=== PATIENT | female | born 1965 | race Two or more races ===

== ENCOUNTER 2020-11-28 13:11 | Emergency (ER) | payer OTHER ==
[~2020-11-28] VITALS: Ht 154.9 cm; Wt 72.6 kg
[2020-11-28] MEDS ORDERED: TOPROL XL25 M1 PO (13:32)
[2020-11-28] MEDS ORDERED: FORTAMET500 MG PO (13:32)
[2020-11-28] MEDS ORDERED: KETO10TA2 PO (19:48)
[2020-11-28] MEDS ORDERED: ANALPRAM HC RECTAL (19:48)
== END 2020-11-28 19:57 | disposition home or self-care (01) ==
LOC: ER 13:11
DX: K57.30 Diverticulosis of large intestine without perforation or abscess without bleeding (principal); R10.32 Left lower quadrant pain

== ENCOUNTER 2021-01-26 10:07 | Day surgery (SDC) | payer OTHER ==
[~2021-01-26 10:07] MED LIST: ANALPRAM HC RECTAL; FORTAMET500 MG PO; KETO10TA2 PO; TOPROL XL25 M1 PO
== END 2021-01-26 14:30 | disposition home or self-care (01) ==
LOC: AMB-ENDOS 10:07
PROVIDERS: ATTEND Surgery
DX: K63.5 Polyp of colon (principal); K64.8 Other hemorrhoids

== ENCOUNTER 2022-01-18 05:24 | Emergency (ER) | payer OTHER ==
[~2022-01-18] VITALS: Ht 154.9 cm; Wt 75.3 kg
[2022-01-18] MEDS ORDERED: INDERAL LA80 MG (05:39)
[2022-01-18] MEDS ORDERED: INDERAL LA80 MG PO (05:39)
[2022-01-18] MEDS ORDERED: JANUMET 50-1,01 EACH PO (05:39)
[2022-01-18] MEDS ORDERED: DEXILANT60 MG (05:40)
[2022-01-18] MEDS ORDERED: CRESTOR5 MG PO (05:40)
== END 2022-01-18 09:05 | disposition home or self-care (01) ==
LOC: ER 05:24
DX: M54.2 Cervicalgia (principal); Z88.0 Allergy status to penicillin; Z88.6 Allergy status to analgesic agent; I10 Essential (primary) hypertension

== ENCOUNTER 2022-07-15 05:21 | Emergency (ER) | payer OTHER ==
[~2022-07-15] VITALS: Ht 152.4 cm; Wt 74.8 kg
[~2022-07-15 05:21] MED LIST changes: +CRESTOR5 MG PO; +DEXILANT60 MG; +INDERAL LA80 MG; +INDERAL LA80 MG PO; +JANUMET 50-1,01 EACH PO
== END 2022-07-15 14:16 | disposition home or self-care (01) ==
LOC: ER 05:21
DX: R10.32 Left lower quadrant pain (principal); K44.9 Diaphragmatic hernia without obstruction or gangrene; K21.9 Gastro-esophageal reflux disease without esophagitis; N20.0 Calculus of kidney; K57.30 Diverticulosis of large intestine without perforation or abscess without bleeding; K59.00 Constipation, unspecified; I10 Essential (primary) hypertension; E11.9 Type 2 diabetes mellitus without complications; Z79.84 Long term (current) use of oral hypoglycemic drugs; Z88.0 Allergy status to penicillin; Z88.8 Allergy status to other drugs, medicaments and biological substances

== ENCOUNTER 2024-05-14 05:17 | Emergency (ER) | payer OTHER ==
[~2024-05-14] VITALS: Ht 154.9 cm; Wt 74.8 kg
[2024-05-14] MEDS ORDERED: 0.9 % SODIUM CHLORIDE 1,000 ML IV STA (06:21)
[2024-05-14] MEDS ORDERED: MEPERIDINE HCL/PF 25 MG/ML VIAL IM STA (06:22)
[2024-05-14] MEDS ORDERED: PROMETHAZINE HCL 25 MG/ML AMPUL IM STA (06:22)
[2024-05-14] MEDS ORDERED: HYOSCYAMINE SULFATE 0.125 MG TAB.SUBL ONE (06:28)
[2024-05-14] MEDS ORDERED: PROMETHAZINE HCL 25 MG/ML AMPUL ONE (06:28)
[2024-05-14] MEDS ORDERED: HYOSCYAMINE SULFATE 0.125 MG TAB.SUBL SL ONE (06:30)
[2024-05-14] MEDS ORDERED: BARIUM SULFATE 450 ML ORAL.SUSP PO ONE (06:39)
[2024-05-14 07:37] LABS: HEMATOCRIT 42.1 % (36.0-45.00); HEMOGLOBIN 14.3 g/dL (12.0-15.00); MEAN CELL VOLUME 90.7 fL (80.00-100.00); MEAN CORPUSCULAR HEMOGLOBIN 30.9 pg (27.00-32.0); MEAN CORPUSCULAR HGB CONC 34.1 g/dl (32.0-36.0); PLATELET COUNT 229 K/uL (150-450); RED BLOOD COUNT 4.64 M/uL (4.00-6.00); RED CELL DISTRIBUTION WIDTH 13.5 % (11.5-14.5)
[2024-05-14 09:37] LABS: INR 1.01; PARTIAL THROMBOPLASTIN TIME 28.8 SECONDS (22.0-34.0)
[2024-05-14 09:51] LABS: URINE APPEARANCE Clear; URINE BILIRRUBIN Negative (NEGATIVE); URINE BLOOD Negative; URINE COLOR Yellow; URINE GLUCOSE Negative (NEGATIVE); URINE KETONE Negative (NEGATIVE); URINE LEUKOCYTE Moderate; URINE NITRATE Negative; URINE PROTEIN Negative (NEGATIVE); URINE UROBILINOGEN 0.2 E.U./dl
[2024-05-14 09:55] LABS: URINE BACTERIA 67.3 uL (0.0-1933); URINE EPITHELIAL CELLS 30.3 uL (0.0-38.8); URINE RBC 8.2 uL (0.0-20.8); URINE WBC 133.7 uL (0.0-23.2)
[2024-05-14 10:53] LABS: URINE CAST 0.14 uL (0.0-1.40)
[2024-05-14 10:57] LABS: ALBUMIN 3.6 gm/dL (3.4-5.0); BILIRUBIN TOTAL 0.42 mg/dL (0.3-1.2); CALCIUM 9.5 mg/dL (8.5-10.1); CREATININE SERUM 0.79 mg/dL (0.55-1.02); GFR 74.49; GLOBULINA 3.9 G/DL (2.4-3.5); POTASSIUM 4.5 mEq/L (3.5-5.1); TOTAL PROTEIN 7.5 gm/dL (6.4-8.2)
== END 2024-05-14 13:15 | disposition home or self-care (01) ==
LOC: ER 05:20
DX: K59.00 Constipation, unspecified (principal); N39.0 Urinary tract infection, site not specified; R10.32 Left lower quadrant pain; R10.9 Unspecified abdominal pain; Z88.0 Allergy status to penicillin; Z88.1 Allergy status to other antibiotic agents
CPT/HCPCS: 36415; 74177; Q9965

== ENCOUNTER 2024-07-08 05:50 | Day surgery (SDC) | payer OTHER ==
[~2024-07-08 05:50] MED LIST changes: +HORIZANT300 MG PO; +LIPITOR20 MG PO; +LIPOFEN50 MG PO; +MELOXICAM15 MG PO; +MULTIPLE VITAM1 EAC2 PO; +PEPCID AC20 MG PO
[2024-07-08] MEDS ORDERED: BUPIVACAINE HCL/MPF 0.5% 30ML VIAL ONE (08:25)
[2024-07-08] MEDS ORDERED: POVIDONE-IODINE 118 ML BOTT TOP ONE (08:25)
[2024-07-08] MEDS ORDERED: DIBUCAINE 30 GM TUBE ONE (08:25)
[2024-07-08] MEDS ORDERED: LIDOCAINE HCL 1%/EPINEPHRINE 20ML VIAL IJ ONE (08:26)
[2024-07-08] MEDS ORDERED: HEMOSTATIC MATRIX 1 KIT KIT TOP ONE (08:26)
[2024-07-08] MEDS ORDERED: METRONIDAZOLE/SODIUM CHLORIDE 500 MG/100 ML PIGGYBACK IV ONE ×2 (08:40→08:56)
[2024-07-08] MEDS ORDERED: levoFLOXacin IN DEXTROSE 5 % 5 MG/ML PIGGYBAG IV ONE (10:15)
[2024-07-08] MEDS ORDERED: PERCOCET 5-3251 EACH PO (10:37)
[2024-07-08] MEDS ORDERED: RECTICARE30 GM TOP (10:37)
[2024-07-08] MEDS ORDERED: TRAM1TAB98 PO (13:49)
== END 2024-07-08 15:40 | disposition home or self-care (01) ==
LOC: CIR.AMB 05:50
PROVIDERS: ATTEND Surgery
DX: K64.2 Third degree hemorrhoids (principal); K64.4 Residual hemorrhoidal skin tags; E11.9 Type 2 diabetes mellitus without complications; I10 Essential (primary) hypertension; F41.9 Anxiety disorder, unspecified; M19.90 Unspecified osteoarthritis, unspecified site; Z88.6 Allergy status to analgesic agent; Z88.5 Allergy status to narcotic agent

== ENCOUNTER 2024-07-08 18:44 | Emergency (ER) | payer OTHER ==
[~2024-07-08] VITALS: Ht 167.6 cm; Wt 81.6 kg
[~2024-07-08 18:44] MED LIST changes: +PERCOCET 5-3251 EACH PO; +RECTICARE30 GM TOP; +TRAM1TAB98 PO
[2024-07-08] MEDS ORDERED: TRAMADOL HCL 50 MG TABLET PO ONE (19:15)
[2024-07-08] MEDS ORDERED: FAMOTIDINE/PF 20 MG in 0.9 % SODIUM CHLORIDE 8 ML IV PUSH STA (19:39)
[2024-07-08] MEDS ORDERED: KETOROLAC TROMETHAMINE 30 MG VIAL IV ONE (19:45)
[2024-07-08] MEDS ORDERED: ONDANSETRON HCL 2 MG/ML VIAL IV ONE (19:45)
[2024-07-08] MEDS ORDERED: FAMOTIDINE/PF 20 MG/2 ML VIAL ONE (20:02)
[2024-07-08] MEDS ORDERED: KETOROLAC TROMETHAMINE 30 MG VIAL ONE (20:02)
[2024-07-08] MEDS ORDERED: ONDANSETRON HCL 2 MG/ML VIAL ONE (20:02)
== END 2024-07-08 22:32 | disposition home or self-care (01) ==
LOC: ER 18:44
DX: R33.9 Retention of urine, unspecified (principal); Z88.0 Allergy status to penicillin; Z88.5 Allergy status to narcotic agent; Z88.6 Allergy status to analgesic agent
CPT/HCPCS: 51702; 96365; 99282; J1885; J2405; J3490

== ENCOUNTER 2024-07-17 10:14 | Emergency (ER) | payer OTHER ==
[~2024-07-17] VITALS: Ht 154.9 cm; Wt 75.3 kg
[2024-07-17] MEDS ORDERED: INDERAL LA80 MG PO (10:30)
[2024-07-17] MEDS ORDERED: KETOROLAC TROMETHAMINE 30 MG VIAL ONE (10:56)
[2024-07-17] MEDS ORDERED: 0.9 % SODIUM CHLORIDE 1,000 ML IV SCH (11:00)
[2024-07-17] MEDS ORDERED: KETOROLAC TROMETHAMINE 30 MG VIAL IV ONE (11:00)
[2024-07-17 11:48] LABS: ALBUMIN 3.5 gm/dL (3.4-5.0); BILIRUBIN TOTAL 0.5 mg/dL (0.3-1.2); CALCIUM 9.7 mg/dL (8.5-10.1); CREATININE SERUM 0.92 mg/dL (0.55-1.02); GFR 62.48; GLOBULINA 4.5 G/DL (2.4-3.5); HEMATOCRIT 39.4 % (36.0-45.00); HEMOGLOBIN 13.6 g/dL (12.0-15.00); MEAN CORPUSCULAR HEMOGLOBIN 30.7 pg (27.00-32.0); MEAN CORPUSCULAR HGB CONC 34.4 g/dl (32.0-36.0); PLATELET COUNT 276 K/uL (150-450); POTASSIUM 4.74 mEq/L (3.5-5.1); RED BLOOD COUNT 4.42 M/uL (4.00-6.00); RED CELL DISTRIBUTION WIDTH 13.5 % (11.5-14.5)
[2024-07-17] MEDS ORDERED: TRAMADOL HCL 50 MG TABLET PO ONE (12:45)
== END 2024-07-17 12:58 | disposition home or self-care (01) ==
LOC: ER 10:15
PROVIDERS: General Practice
DX: K62.89 Other specified diseases of anus and rectum (principal); Z88.0 Allergy status to penicillin; Z88.5 Allergy status to narcotic agent; Z88.6 Allergy status to analgesic agent